=== PATIENT | female | born 1940 | race Caucasian/White ===

== ENCOUNTER 2023-08-13 21:43 | Emergency (ER) | payer MEDICARE ==
[~2023-08-13] VITALS: Ht 160 cm; Wt 50.0 kg
[2023-08-13 23:51] LABS: BASOPHILS % (AUTO) 0.6 % (0-1); EOSINOPHILS # (AUTO) 0.1 X10'3 (0-0.9); EOSINOPHILS % (AUTO) 1.2 % (0-6); HEMATOCRIT 38.9 % (35.0-45.0); LYMPHOCYTES # (AUTO) 0.4 X10'3 (1.1-4.8); LYMPHOCYTES % (AUTO) 5.4 % (21-51); MEAN CORPUSCULAR HEMOGLOBIN 29.3 PG (27.0-31.0); MEAN CORPUSCULAR HGB CONC 33.4 g/dL (33.0-36.5); MEAN CORPUSCULAR VOLUME 87.7 FL (78-98); MEAN PLATELET VOLUME 6.8 FL (7.4-10.4); MONOCYTES # (AUTO) 0.5 X10'3 (0-0.9); MONOCYTES % (AUTO) 6.2 % (2-12); NEUTROPHILS # (AUTO) 6.4 X10'3 (1.8-7.7); NEUTROPHILS % (AUTO) 86.6 % (42-75); PLATELET COUNT 167 X10'3 (140-440); RED BLOOD COUNT 4.44 X10'6 (4.20-5.60); RED CELL DISTRIBUTION WIDTH 13.4 % (11.5-14.5); WHITE BLOOD COUNT 7.4 X10'3 (4.5-11.0)
[2023-08-14 00:06] LABS: ALANINE AMINOTRANSFERASE 7 U/L (12-78); ALBUMIN 2.9 G/DL (3.4-5.0); ALBUMIN/GLOBULIN RATIO 0.8 (1.1-1.5); ALKALINE PHOSPHATASE 61 IU/L (46-116); ANION GAP 8 (8-16); ASPARTATE AMINO TRANSFERASE 28 U/L (10-37); BILIRUBIN,TOTAL 1.3 MG/DL (0.1-1.0); BLOOD UREA NITROGEN 25 MG/DL (7-18); BUN/CREATININE RATIO 20.2 (10.0-20.0); C-REACTIVE PROTEIN 18.94 MG/DL (0.0-0.5); CHLORIDE 101 MMOL/L (99-107); CREATININE 1.24 MG/DL (0.40-0.90); GLUCOSE 97 MG/DL (70-104); MAGNESIUM 2.1 MG/DL (1.5-2.4); POTASSIUM 3.5 MMOL/L (3.5-5.1); SODIUM 138 MMOL/L (135-145); TOTAL CARBON DIOXIDE 28.9 MMOL/L (24-32); TOTAL PROTEIN 6.6 G/DL (6.4-8.2); eCRCL 28 ML/MIN; eGFR 42 ML/MIN
[2023-08-14] MEDS ORDERED: colchicine 0.6mg tablet PO ONE (00:50)
[2023-08-14 01:29] LABS: URIC ACID 4.2 MG/DL (2.5-6.2)
[2023-08-14] MEDS ORDERED: DOXYCYCLINE 100MG CAPSULE PO STA (02:21)
[2023-08-14] MEDS ORDERED: DOXY-11 PO (02:23)
[2023-08-14 02:39] VITALS: BP 130/88; PULSE 81; RESP 17; TEMP 98.7; O2SAT 98
== END 2023-08-14 02:36 | disposition home or self-care (01) ==
LOC: ER 21:44
DX: L03.115 Cellulitis of right lower limb (principal); Z79.2 Long term (current) use of antibiotics; G20.A1 Parkinson's disease without dyskinesia, without mention of fluctuations; G89.29 Other chronic pain; Z90.710 Acquired absence of both cervix and uterus
CPT/HCPCS: 36415; 73610; 80053; 83735; 84145; 84550; 85025; 85651; 86140; 93005; 93971; 99285

== ENCOUNTER 2023-09-22 11:48 | Emergency (ER) | payer MEDICARE ==
[~2023-09-22] VITALS: Ht 160 cm; Wt 51.5 kg
[2023-09-22] MEDS: LIDOCAINE 1%/EPI 1:100,000 inj. 10 ML multi-dose vial IJ ONE (13:35)
[2023-09-22] MEDS: TETanus/Pertussis (Acell)/Diphther VAC/PF (Tdap-Adult) 0.5ml syringe IMVAC ONE (13:59)
[2023-09-22] MEDS: LIDOcaine/epinephrine/tetracaine TOPICAL sol 3 ML syringe TOP ONE (14:22)
[2023-09-22 14:52] VITALS: BP 122/84; PULSE 85; RESP 18; TEMP 97; O2SAT 96
== END 2023-09-22 14:53 | disposition home or self-care (01) ==
LOC: ER 11:49
DX: S01.01XA Laceration without foreign body of scalp, initial encounter (principal); Z90.710 Acquired absence of both cervix and uterus; W19.XXXA Unspecified fall, initial encounter; Y93.89 Activity, other specified; Y92.89 Other specified places as the place of occurrence of the external cause; Y99.8 Other external cause status
CPT/HCPCS: 12002; 70450; 90471; 90715; 99285; A6449

== ENCOUNTER 2025-07-20 15:48 | Emergency (ER) | payer MEDICARE ==
[~2025-07-20] VITALS: Ht 157.5 cm; Wt 50.0 kg
[2025-07-20 15:51] VITALS: BP 193/155
[2025-07-20 16:26] VITALS: PULSE 98; RESP 28; O2SAT 78
--- NOTE | 2025-07-20 16:27 | Physician Documentation ---
Addendum CHIEF COMPLAINT/HPI: The patient is an 84-year-old female with a history of end-stage Parkinson's disease, on hospice at home and brought in by ambulance after she collapsed at home. According to her and daughter she had been having chest and back pain all day and was taking her prescribed opioid medications for this. She collapsed in the hallway and her called 911. She arrived with a POLST stating DNI/DNR. Both her and daughter confirmed that she does not wish to be intubated are on any artificial means of support such as a respirator or feeding tubes. REVIEW OF SYSTEMS: Unable to obtain PHYSICAL EXAMINATION: GCS on presentation was 5. The patient's oxygen saturations on room air were rapidly deteriorating and we provided supplemental oxygen until I was able to talk with the patient's and daughter, who arrived rather promptly. I asked them how best to proceed and gave them various options, including intubation, positive pressure breathing, supplemental oxygen. We agreed to let nature take its course. They stayed with the patient in her room. MEDICAL DECISION MAKING: The patient's oxygen saturations on room air were rapidly deteriorating and we provided supplemental oxygen until I was able to talk with the patient's and daughter who arrived rather promptly. I asked them how best to proceed and gave them various options including intubation, positive pressure breathing, supplemental oxygen. We agreed to let nature take its course. They stayed with this patient in her room. The patient at 4:46 p.m. Departure Disposition: 20 Impression: Primary Impression: Hospice care patient Additional Impression: Parkinson disease ANNA MCMILLAN MD Jul 20, 2025 16:27
[2025-07-21 02:47] VITALS: TEMP 97.6
--- NOTE | 2025-07-21 11:07 | ELECTROCARDIOGRAPH REPORT ---
[facility] Test Date: 2025-07-20 Test Time: 15:59:49 Pat Name: ONEL GARCIA Department: EMERGENCY ROOM Room: Gender: F Legal Support Manager: BENJAMIN : 1940 Requested By: ANNA MCMILLAN Order Number: [id number] Reading MD: Dr. BHAVNA Ruffin Measurements Intervals Ashley Rate: 106 P: 37 MA: 143 QRS: 68 QRSD: 123 T: -68 QT: 385 QTc: 512 Interpretive Statements Sinus tachycardia IVCD, consider atypical LBBB Electronically Signed On 07-22-2025 9:36:[address] BHAVNA Ruffin Please click the below link to view image of tracing.
== END 2025-07-20 23:20 ==
LOC: ER 15:48
DX: G20.A1 Parkinson's disease without dyskinesia, without mention of fluctuations (principal); Z51.5 Encounter for palliative care
CPT/HCPCS: 93005; 99285; A4615; 94760